=== PATIENT | male | born 1950 | race Caucasian/White ===

== ENCOUNTER 2022-08-10 11:47 | Emergency (ER) | payer MEDICARE, SELFPAY ==
--- NOTE | ~2022-08-10 | XR_ITS ---
EXAMINATION: XR chest 1V portable INDICATION: Cough TECHNIQUE: Portable AP chest at 1214 hours COMPARISON: None available FINDINGS: There is elevation of the left hemidiaphragm. Calcified pulmonary nodules are consistent wi th old granulomatous disease. There are airspace opacities of the left lung base. No pleural effusion or pneumothorax. IMPRESSION: 1. Left basilar airspace opacity, consistent with atelectasis versus pneumonia. 2. Elevation of the left hemidiaphragm of unclear etiology. Reviewed, dictated and finalized at location A.
[2022-08-10 11:54] VITALS: BP 137/77; PULSE 80; RESP 20; TEMP 36.9; O2SAT 92
--- NOTE | 2022-08-10 11:56 | ECG_ITS ---
Measurements Intervals [place] Rate: 81 P: 197 NC: 136 QRS: 190 QRSD: 110 T: 147 QT: 350 QTc: 407 Interpretive Statements SINUS RHYTHM LIMB LEAD REVERSAL INCOMPLETE RIGHT BUNDLE BRANCH BLOCK BASELINE ARTIFACT- I, II, III, AVR, AVL, AVF BORDERLINE ECG NO PREVIOUS ECG AVAILABLE FOR COMPARISON Electronically Signed On 08-10-2022 16:29:40 CDT by Edgar Amador D.O.
[2022-08-10 12:02] VITALS: PULSE 83
--- NOTE | 2022-08-10 12:10 | ED.SOB ---
HPI - SOB/Dyspnea General Chief Complaint: Shortness of Breath/Dyspnea Stated Complaint: shortness of breath Time Seen by Provider: 08/10/22 11:58 History of Present Illness HPI Narrative: This is a 72-year-old male with reported history of COPD, presenting emergency department complaining of cough and shortness of breath for the past 5 days. He states his cough is productive of mucus without blood. He denies pain and has chronic lower extremity swelling that is not worse than usual. Related Data Allergies Allergy/AdvReac Type Severity Reaction Status Date / Time No Known Allergies Allergy Verified 08/10/22 11:49 Review of Systems Review of Systems: CONSTITUTIONAL: Denies fever, chills, or sweats. EYES: Denies visual changes, redness, or discharge. ENT: Rhinorrhea, congestion denies sore throat, or otalgia. CARDIOVASCULAR: Denies chest pain, palpitations, or edema. RESPIRATORY: Cough and dyspnea GASTROINTESTINAL: Denies abdominal pain, nausea, vomiting, or diarrhea. GENITOURINARY: Denies dysuria or hematuria. SKIN: Denies rash or itching. MUSCULOSKELETAL: Denies back pain, joint pain, or myalgia. NEUROLOGIC: Denies headache, numbness, dizziness, or weakness. PSYCHIATRIC: Denies anxiety or depression. Exam Narrative: GENERAL: Well-developed, well-nourished, and in no acute distress. HEAD: Normocephalic, atraumatic. EYES: PERRLA and EOMI. ENT: Nares clear, no rhinorrhea or epistaxis. Mucous membranes moist. Oropharynx without tonsillar hypertrophy exudate or other lesions. NECK: Supple. No adenopathy or masses. No carotid bruits or JVD CHEST: Good aeration with expiratory wheeze noted throughout all posterior lung rinaldi. No respiratory distress. No rales or rhonchi HEART: Regular rate and rhythm. No murmur heard. Normal peripheral pulses. ABDOMEN: Soft, nontender, nondistended, normal active bowel sounds. EXTREMITIES: Normal range of motion. Trace bilateral lower extremity edema SKIN: Warm, dry, no rash. NEURO: No focal deficits. Alert and oriented x3. PSYCH: Normal mood and affect. Course Course Emergency Course: 12:10 - Patient seen ambulating in the emergency department. On initial evaluation, his O2 sats briefly dipped to the high 80s then recovered to the low 90s on room air. 14:00 - On reevaluation, the patient states his breathing is significantly improved. CBC demonstrates mildly decreased hemoglobin of 13.4 but is otherwise unremarkable. Chemistries unremarkable. Chest x-ray demonstrates pneumonia. EKG not concerning for ischemia. After discussing repeat nebs with recommendation for admission given pneumonia and hypoxia, the patient politely but adamantly refuses. Will treat with albuterol inhaler and discharged with antibiotics for pneumonia. Discussed return and emergency precautions including signs/symptoms of respiratory distress and ACS. The patient voiced understanding and is comfortable with the plan. All questions answered to his satisfaction. Vital Signs Vital signs: Vital Signs Temperature 98.5 F 08/10/22 11:54 Pulse Rate 80 08/10/22 11:54 Respiratory Rate 20 08/10/22 11:54 Blood Pressure 137/77 08/10/22 11:54 Pulse Oximetry 92 08/10/22 11:54 Temperature 98.5 F 08/10/22 11:54 Pulse Rate 85 08/10/22 15:12 Respiratory Rate 23 H 08/10/22 15:12 Blood Pressure 119/80 08/10/22 15:12 Pulse Oximetry 93 08/10/22 15:12 MDM - SOB/Dyspnea MDM Narrative Medical decision making narrative: Plan: Labs, imaging, nebs, EKG, troponin, steroids, reassess Differential Diagnosis Differential diagnosis: Likely acute exacerbation of chronic obstructive airways disease, congestive heart failure, community acquired pneumonia and other (ACS, COVID, influenza, metabolic abnormality, other) Lab Data 08/10/22 12:11 08/10/22 12:11 Labs: Lab Results 08/10/22 08/10/22 08/10/22 Range/Units 12:02 12:11 12:11 WBC 6.4 (4.5-10.0) K/mm3 RBC 4.0
[2022-08-10 12:17] LABS: Basophils Percent Auto 0.3 % (0.2-1.2); Eosinophils Absolute Auto 0.5 K/mm3 (0-0.3); Hematocrit 38.8 % (42.0-52.0); Hemoglobin 13.4 g/dL (14.0-18.0); Immature Granulocyte Absolute 0.03 K/mm3 (0.00-0.031); Immature Granulocyte Percent A 0.5 % (0-0.5); Lymphocytes Absolute Auto 1.95 K/mm3 (0.9-3.2); Lymphocytes Percent Auto 30.4 % (18.3-44.2); Mean Corpuscular HGB Conc 34.5 g/dl (32-36); Mean Corpuscular Volume 95.6 fl (80-100); Mean Platelet Volume 9.4 fl (7.4-10.4); Monocytes Absolute Auto 0.9 K/mm3 (0.1-0.6); Monocytes Percent Auto 13.2 % (2.6-8.5); Neutrophils Absolute Auto 3.1 K/mm3 (1.3-6.7); Neutrophils Percent Auto 48.6 % (45.5-73.1); Platelet Count Result 211 k/mm3 (150-375); Red Blood Count 4.06 M/mm3 (4.6-6.20); Red Cell Distribution Width 11.6 % (11.5-14.5); White Blood Count 6.4 K/mm3 (4.5-10.0)
[2022-08-10] MEDS: ALBUTEROL SULFATE NEB 2.5 MG/3 ML INH 10 MG INHALATION (12:24)
[2022-08-10 12:25] VITALS: PULSE 76; RESP 17
[2022-08-10] MEDS: IPRATROPIUM BR 0.02% INH SOLN 0.5 MG/2.5 ML VIAL 1.5 MG INHALATION (12:25)
[2022-08-10 12:28] LABS: Alanine Aminotransferase 43 U/L (6-50); Albumin Level 4.2 g/dL (3.5-5.1); Alkaline Phosphatase 96 U/L (38-126); Anion Gap 5 mmol/L (8-16); Aspartate Amino Transferase 52 U/L (17-59); Bilirubin,Total 0.6 mg/dL (0.2-1.3); Blood Urea Nitrogen 19 mg/dL (9-20); Calcium 8.7 mg/dL (8.4-10.2); Carbon Dioxide 30 mmol/L (22-30); Chloride 98 mmol/L (98-107); Estimated CRCL calculation 95 ml/min; Estimated Glomerular Filt Rate > 60; Glucose 116 mg/dL (65-110); Magnesium 2.1 mg/dL (1.6-2.3); Potassium 4.5 mmol/L (3.4-5.0); Sodium 133 mmol/L (137-145)
[2022-08-10 12:31] LABS: INR 1.1; Prothrombin Time 13.3 Seconds (11.1-14.7)
[2022-08-10 12:32] LABS: Partial Thromboplastin Time 30.2 SECONDS (22.3-36.8)
[2022-08-10 12:39] LABS: NT Pro B Type Natriuretic Pept 32 pg/mL (19.9-100); Troponin I < 0.012 ng/mL (0.000-0.034)
[2022-08-10 12:54] LABS: Influenza A QL RT-PCR Negative (Negative); Influenza B QL RT-PCR Negative (Negative); SARS-CoV-2 RNA PCR Negative
[2022-08-10] MEDS: AZITHROMYCIN 250 MG TABLET 500 MG PO (13:11)
[2022-08-10] MEDS: predniSONE 20 MG TABLET 60 MG PO (13:11)
[2022-08-10 13:19] VITALS: BP 141/82; PULSE 79; RESP 20; O2SAT 97
[2022-08-10 14:50] VITALS: PULSE 82; RESP 19
[2022-08-10] MEDS: ALBUTEROL SULFATE (*SP) AEROSOL 1 PUFF 4 PUFF INHALATION (14:51)
[2022-08-10 15:12] VITALS: BP 119/80; PULSE 85; RESP 23; O2SAT 93
== END 2022-08-10 15:14 | disposition home or self-care (01) ==
PROVIDERS: Emergency Medicine; Emergency Provider Preventive Medicine Aerospace Medicine; PCP Hospitalist
DX: J44.1 Chronic obstructive pulmonary disease with (acute) exacerbation (principal); J18.9 Pneumonia, unspecified organism; Z20.822 Contact with and (suspected) exposure to COVID-19
CPT/HCPCS: 36415; 71045; 80053; 83735; 83880; 84484; 85025; 85610; 85730; 87040; 87502; 93005; 94640; 94664; 96365; 99284; A9270; J0696; J7512; U0003; U0005

== ENCOUNTER 2025-05-07 11:08 | Observation (INO) | payer MEDICARE, SELFPAY ==
[2025-05-07] VITALS (14 sets, daily range): BP systolic 118–159; BP diastolic 59–88; PULSE 63–116; RESP 16–22; TEMP 36.3–37.3; O2SAT 92–100; BMI 39.3
--- NOTE | ~2025-05-07 | XR_ITS ---
Examination: XR chest 1V portable Clinical History: SOB Comparison: 08/10/2022 Technique: Portable AP Findings: Cardiomegaly. Multiple calcified granulomata. Elevated left hemidiaphragm, associated basilar atelectasis. No acute bony abnormality. IMPRESSION: 1. No acute cardiopulmonary findings given portable technique. Reviewed, dictated and finalized at location R. ATCHER CLERK
--- OUTSIDE RECORDS SUMMARY | 2025-05-07 11:10 | XMS_ITS | Encounter Summary ---
Author Organization [facility] Address [address] [place] [address] Care Team Providers Care Coverstitch Machine Operator Name Role Phone Unavailable Primary Care Provider Unavailabl e Encounter Details Date Type Department Care Team (Late st Contact Info) Description 08/02/2024 Lab Requisition [facility] - DermPath Lab [address] [facility] [place] [phone] [place] [id number] [facility] [address] [place] [address] Social History Tobacco Use Types Packs/Day Years Used Date Smoking Tobacco: Former Cigarettes 0 Q uit: 05/29/2012 Smokeless Tobacco: Never Alcohol Use Standard Drinks/Week Comments Yes 14 (1 standard drink = 0.6 oz pu re alcohol) nightly Sex and Gender Information Value Date Recorded Sex Assigned at Not on file Legal Sex Male 2:58 PM CDT Gender Identity Not on file Sexual Orientation Not on file documented as of this encounter Plan of Treatment Not on file documented as of this encounter Procedures Procedure Name Priority Date/Time Associated Diagnosis Comments DERMATOPATHOLOGY Routine 07/30/2024 3:33 AM CDT documented in this encounter Results * DERMATOPATHOLOGY (07/30/2024 3:33 AM CDT) Case Report Dermatopathology Report Case: [id number] Authorizing Provider: Vernon Serrano MD Collected: 07/30/2024 03:33 AM Ordering Location: [facility] - Received: 08/02/2024 10:16 AM DermPath Lab Pathologist: Stephany Granados MD Specimens: A) - Skin, right superior lateral neck B) - Skin, right tragus 4:04 PM CDT DERMATOPATHOLOGY LABORATORY Final Diagnosis Specimen A. 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 The specimen consists of a shave biopsy measuring 39c18k0 mm. Jar 0. Specimen B: Received is one formalin filled container labeled with the patient's name and designated right tragus. The specimen consists of a punch biopsy measuring 4x4x4 mm. Jar 0. 4:04 PM CDT DERMATOPATHOLOGY LABORATORY Microscopic Description Specimen A. SKIN, right superior lateral neck: Sections show nests of cells with pale cytoplasm and thin strands of relatively normal keratinocytes intervening. There is overlying parakeratosis. The hematoxylin and eosin stain is reviewed; immunohistochemical stains are performed to further assess the histologic features. Lesional cells are highlighted by p63 and TAMERA. Lesional cells show patchy positivity with CK7. Lesional cells do not show significant staining with BerEp4 immunostain. COMMENT: The overall histologic features are favored to represent squamous cell carcinoma in situ with clear cell features; however, sebaceous carcinoma cannot be entirely excluded. Specimen B. SKIN, right tragus: The epidermis shows parakeratosis, full thickness disorderly maturation of keratinocytes, mitoses at different levels, and dyskeratotic cells. 4:04 PM CDT DERMATOPATHOLOGY LABORATORY Disclaimer An external and internal positive and negative controls are appropriate for the histochemical, immunohistochemical and immunofluorescence stain(s) in this case (if any), except where stated explicitly. The performance characteristics of the stain(s) cited in this report were developed and its performance characteristic determined by the Dermatopathology Laboratory at [facility], directed by Dr. Nigel Allen. These tests need not be, and therefore are not, approved by the [place] Food and Drug Administration. The tests are used for clinical purposes. Billing Codes Specimen Charges Stain Charges 19298 35300 1 1 43144 85000 77469 82675 1 1 1 1 5 4:04 PM CDT DERMATOPATHOLOGY LABORATORY Embedded Images 5 4:04 PM CDT DERMATOPATHOLOGY LABORATORY Pathology/Cytology TISSUE SPECIMEN FROM SKIN / Unknown 07/30/2024 3:33 AM CDT 08/02/2024 10:16 AM CDT Miscellaneous samples (specimen) TISSUE SPECIMEN FROM SKIN / Unknown 07/30/2024 3:33 AM CDT 08/02/2024 10:16 AM CDT Vernon Serrano MD LAB - PATHOLOGY/CYTOLOGY ANTONIETA ROOT Final Result DERMATOPATHOLOGY LABORATORY [facility] - Department of Dermatology [facility] [address] [place] [address], [address] [phone] documented in this encounter Visit Diagnoses Not on filedocumented in this encounter
--- OUTSIDE RECORDS SUMMARY | 2025-05-07 11:10 | XMS_ITS | Encounter Summary ---
Author Organization [facility] Address [address] [place] [address] Care Team Providers Care Coach Cleaner Name Role Phone Unavailable Primary Care Provider Unavailabl e Encounter Details Date Type Department Care Team (Late st Contact Info) Description 09/10/2024 Lab Requisition [facility] - DermPath Lab [address] [facility] [place] [phone] [place] [address] [facility] [address] [place] [phone] Social History Tobacco Use Types Packs/Day Years [...] Priority Date/Time Associated Diagnosis Comments DERMATOPATHOLOGY Routine 09/08/2024 12:0 0 AM CDT documented in this encounter Results * DERMATOPATHOLOGY (09/08/2024 12:00 AM CDT) Case Report Dermatopathology Report Case: [id number] Authorizing Provider: Vernon Serrano MD Collected: 09/08/2024 12:00 AM Ordering Location: [facility] - Received: 09/10/2024 10:37 AM DermPath Lab Pathologist: Linh Hoffman MD Specimen: Skin, right central lateral neck 4:23 PM CDT DERMATOPATHOLOGY LABORATORY Final Diagnosis Specimen A. 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 4:23 PM CDT DERMATOPATHOLOGY LABORATORY Gross Description Specimen A: Received is one formalin filled container labeled with the patient's name and designated right central lateral neck.The specimen consists of an ellipse measuring 31f36k3 mm and is oriented with the notch at the 9 o'clock position labeled on the requisition as notch. The 12 to 6 o'clock margin is inked green. The 6 o'clock to 12 o'clock margin is inked red. The 12 o'clock tip is submitted in cassette 1. The 6 o'clock tip is submitted in cassette 2. The remainder of the ellipse is serially sectioned and submitted in cassettes 3-7. Jar 0. 4:23 PM CDT DERMATOPATHOLOGY LABORATORY Microscopic Description Specimen A. SKIN, right central lateral neck: The epidermis shows parakeratosis, full thickness disorderly maturation of keratinocytes, mitoses at different levels, and dyskeratotic cells. This lesion is not present at the margin of the specimen. There are fibroblasts and collagen bundles oriented parallel to the skin surface with elongated blood vessels, some of which are oriented perpendicular to the skin surface. 4:23 PM CDT DERMATOPATHOLOGY LABORATORY Disclaimer An external and internal positive and negative controls are appropriate for the histochemical, immunohistochemical and immunofluorescence stain(s) in this case (if any), except where stated explicitly. The performance characteristics of the stain(s) cited in this report were developed and its performance characteristic determined by the Dermatopathology Laboratory at [facility], directed by Dr. Nigel Allen. These tests need not be, and therefore are not, approved by the [place] Food and Drug Administration. The tests are used for clinical purposes. Billing Codes Specimen Charges Stain Charges 10074 1 5 4:23 PM CDT DERMATOPATHOLOGY LABORATORY Embedded Images 5 4:23 PM CDT DERMATOPATHOLOGY LABORATORY Pathology/Cytolog y TISSUE SPECIMEN FROM SKIN / Unknown 09/08/2024 09/10/2024 10:37 AM CDT Vernon Serrano MD LAB - PATHOLOGY/CYTOLOGY ANTONIETA ROOT Final Result DERMATOPATHOLOGY LABORATORY [facility] - Department of Dermatology [facility] [address] [place] [address], [address] [phone] documented in this encounter Visit Diagnoses Not on filedocumented in this encounter
--- OUTSIDE RECORDS SUMMARY | 2025-05-07 11:10 | XMS_ITS | Clinical Summary ---
Author Organization [facility] Address [address] [facility] [place] [address] Care Team Providers Care Nut Threader Name Role Phone Unavailable Primary Care Provider Unavailabl e Source Comments [facility],non-owned Affiliates and Associated Physician Practices is amultiple site organization consisting of ambulatory clinics and hospital sitesin [place], [place], [place] and [place]. This disclosure is being madepursuant to the Care Everywhere program and may not contain all information available regarding this patient. Last updated 18.[facility] Allergies No known active allergies Medications * Be aware that medications may not be up to date on this document. Alwaysverify current medications with the patient. LORazepam (ATIVAN) 1 MG tablet Take 1 tablet by mouth once as needed for Anxiety (before the procedur. do not drive for 24 hours.) 1 tablet 8 Active gabapentin (NEURONTIN) 600 MG tablet Take 1 tablet by mouth 3 times daily 90 tablet 11 8 Active Additional Information Patient taking differently:600 mg Oral4 TIMES DAILY, Reported on 05/29/2018 traMADol (ULTRAM) 50 MG tablet Take 50 mg by mouth every 6 hours as needed for Pain Active fenofibrate (LOFIBRA) 160 MG tablet Take 160 mg by mouth once daily Take with largest meal of the day. 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 Cauda equina syndrome 04/13/2018 Prediabetes 04/13/2018 Immunizations Immunization Administration Dates Next Due INFLUENZA VACCINE 03/22/2018 Social History Tobacco Use Types Packs/Day Years [...] on file Sexual Orientation Not on file Last Filed Vital Signs Vital Sign Reading Time Taken Comments Blood Pressure 126/80 05/29/2018 2:15 PM LACING STRING CUTTER Pulse 68 05/29/2018 2:15 PM LACING STRING CUTTER Temperature 36.5 C (97.7 F) 05/29/2018 2:00 PM LACING STRING CUTTER Respiratory Rate 16 05/29/2018 2:15 PM LACING STRING CUTTER Oxygen Saturation 92% 05/29/2018 2:15 PM LACING STRING CUTTER Inhaled Oxygen Concentration - - Weight 114.8 kg (253 lb) 05/29/2018 8:56 AM LACING STRING CUTTER Height 175.3 cm (5' 9) 05/29/2018 8:56 AM LACING STRING CUTTER Body Mass Index 37.36 05/29/2018 8:56 AM LACING STRING CUTTER Plan of Treatment Health Maintenance Due Date Last Done Comments COLOGUARD (AGES 45-75) - COL ON CA SCREENING 1952 COLON MONITORING 1952 COLONOSCOPY - COLON CA SCREENING 1952 CT COLONOGRAPHY - COLON CA SCREENING 1952 Colorectal Cancer Screening 1952 FIT - COLON CA SCREENING 1952 FLEX SIG - COLON CA SCREENING 1952 LIPID TESTING 1952 HEPATITIS C SCREENING 03/15/1970 DTAP/TDAP/TD VACCINES (1 - Tdap) 1971 PNEUMOCOCCAL VACCINE 50+ (1 of 1 - PCV) 2002 ZOSTER VACCINE (1 of 2) 2002 AAA SCREENING 2017 SCREENING FOR DIABETES 04/13/2018 DEPRESSION SCREENING 05/19/2024 MEDICARE AWV CALENDAR YEAR 2024 COVID-19 VACCINE (1 - 2024-2 6 season) 2025 INFLUENZA VACCINE (#1) 2025 03/22/2018 Respiratory Syncytial Virus (RSV) Vaccine Pt: or over 60 yrs (1 - 1-dose 75+ series) 2027 HEPATITIS B VACCINE Aged Out No longe r eligible based on patient's age to complete this topic HIB VACCINE Aged Out No longer eligi ble based on patient's age to complete this topic HPV VACCINE Aged Out No longer eligi ble based on patient's age to complete this topic MENINGOCOCCAL (Group B) VACC INE SHARED DECISION-MAKING Aged Out No longer eligibl e based on patient's age to complete this topic MENINGOCOCCAL GROUPS A/C/Y/W VACCINE Aged Out No longer eligible b ased on patient's age to complete this topic Insurance MEDICARE MEDICARE [employer] MANAGED MEDICARE ADV
--- NOTE | 2025-05-07 12:42 | ECG_ITS ---
Test Date: 2025-05-07 12:45:39 Measurements Intervals [place] Rate: 114 P: 36 RI: 174 QRS: -76 QRSD: 138 T: 34 QT: 336 QTc: 463 Interpretive Statements SINUS TACHYCARDIA RIGHT BUNDLE BRANCH BLOCK LEFT ANTERIOR FASCICULAR BLOCK BASELINE ARTIFACT- I, II, III, AVR, AVL, AVF, V1-V3 ABNORMAL ECG No previous ECG available for comparison Electronically Signed On 05-07-2025 17:33:00 [employer] by Edgar Amador D.O.
[2025-05-07 12:54] LABS: Hematocrit 40.3 % (42.0-52.0); Hemoglobin 14.1 g/dL (14.0-18.0); Immature Granulocyte Percent A 0.4 % (0-0.5); Lymphocytes Absolute Auto 1.06 K/mm3 (0.9-3.2); Mean Corpuscular HGB Conc 35.0 g/dl (32-36); Mean Corpuscular Hemoglobin 33.0 pg (26-34); Mean Corpuscular Volume 94.4 fl (80-100); Nucleated Red Blood Cells Absolute Auto 0.000 K/mm3 (0.0-0.012); Nucleated Red Blood Cells Perc 0.0 % (0.0-0.2); Platelet Count Result 201 k/mm3 (150-375); Red Blood Count 4.27 M/mm3 (4.6-6.20); White Blood Count 12.7 K/mm3 (4.5-10.0)
[2025-05-07 13:13] LABS: Alanine Aminotransferase 31 U/L (6-50); Albumin Level 4.2 g/dL (3.5-5.1); Alkaline Phosphatase 74 U/L (38-126); Anion Gap 8 mmol/L (4-12); Aspartate Amino Transferase 37 U/L (17-59); Bilirubin,Total 1.2 mg/dL (0.2-1.3); Blood Urea Nitrogen 20 mg/dL (9-20); Calcium 9.3 mg/dL (8.4-10.2); Carbon Dioxide 24 mmol/L (22-30); Chloride 99 mmol/L (98-107); Estimated CRCL calculation 87 ml/min; Estimated Glomerular Filt Rate > 60; Glucose 112 mg/dL (65-110); Potassium 4.4 mmol/L (3.4-5.0); Sodium 131 mmol/L (137-145); Total Protein 7.5 g/dL (6.3-8.2)
--- NOTE | 2025-05-07 13:24 | ED.GENADULT ---
HPI - General Adult General Chief complaint: Shortness of Breath/Dyspnea Stated complaint: SOB Time Seen by Provider: 05/07/25 13:00 History of Present Illness HPI narrative: Patient is a 75-year-old male who presents ER with shortness of breath and confusion. Developed over last 24 hours. He is warm to touch. He is oriented to self. He believes he is in [place]. He is unsure what the date is. This is atypical according to family who is present. No reports of sick contacts. No evidence of trauma. Patient does report he has been having some popping in left ear. Related Data Allergies Allergy/AdvReac Type Severity Reaction Status Date / Time No Known Allergies Allergy Verified 05/07/25 11:17 Review of Systems Review of Systems: ROS unobtainable: Yes unobtainable due to mental status PMFSH Past Medical History Medical History (Updated 05/07/25 @ 17:11 by Ever Brothers MD) YAYA on CPAP COPD (chronic obstructive pulmonary disease) Alcohol abuse Hyperlipidemia Hypertension Exam Narrative: GENERAL: Ill-appearing, well-nourished, and in no acute distress. HEAD: Normocephalic, atraumatic. EYES: PERRLA and EOMI. ENT: Mucous membranes moist. Bulging left TM with air bubbles representing increased pressure. Mild erythema. No overt otitis media. Right-side normal. NECK: Supple. CHEST: Scattered rales/wheezing. No respiratory distress. HEART: Regular rate and rhythm. Normal peripheral pulses. ABDOMEN: Soft, nontender, nondistended. EXTREMITIES: Normal range of motion. No edema. SKIN: Warm, dry, no rash. NEURO: Alert and oriented x1-2 Course Course Emergency Course: Patient resting comfortably. Still some mild mild confusion but improving with O2. Will give steroids and nebulizer treatments. Admit for observation. No pneumonia. Viral panel negative. Vital Signs Vital signs: Vital Signs Temperature 99.1 F 05/07/25 11:13 Pulse Rate 82 05/07/25 11:13 Respiratory Rate 22 H 05/07/25 11:13 Blood Pressure 159/82 H 05/07/25 11:13 Pulse Oximetry 92 05/07/25 11:13 Oxygen Delivery Room Air 05/07/25 11:13 Temperature 99.1 F 05/07/25 11:13 Pulse Rate 100 05/07/25 16:53 Respiratory Rate 19 05/07/25 16:53 Blood Pressure 133/67 05/07/25 16:53 Pulse Oximetry 94 05/07/25 16:53 Oxygen Delivery Nasal Cannula 05/07/25 15:00 Oxygen Flow Rate 2 05/07/25 15:00 [facility] Differential Diagnosis Differential Diagnosis: Pneumonia, COPD exacerbation, bronchitis, metabolic encephalopathy, flu, COVID Lab Data [facility] Lab Attestation statement: I personally reviewed the patient's lab results. 05/07/25 12:48 05/07/25 12:48 Labs: Lab Results 05/07/25 05/07/25 05/07/25 Range/Units 12:48 13:48 16:14 WBC 12.7 H (4.5-10.0) K/mm3 RBC 4.27 L (4.6-6.20) M/mm3 Hgb 14.1 (14.0-18.0) g/dL Hct 40.3 L (42.0-52.0) % MCV 94.4 (80-100) fl MCH 33.0 (26-34) pg MCHC 35.0 (32-36) g/dl RDW 12.1 (11.5-14.5) % Plt Count 201 (150-375) k/mm3 MPV 9.0 (7.4-10.4) fl Immature Gran % (Auto) 0.4 (0-0.5) % Neut % (Auto) 84.2 H (45.5-73.1) % Lymph % (Auto) 8.4 L (18.3-44.2) % Mclennan % (Auto) 6.6 (2.6-8.5) % Eos % (Auto) 0.2 (0-4.4) % Baso % (Auto) 0.2 (0.2-1.2) % Lymph # (Auto) 1.06 (0.9-3.2) K/mm3 Mclennan # (Auto) 0.8 H (0.1-0.6) K/mm3 Eos # (Auto) 0.0 (0-0.3) K/mm3 Baso # (Auto) 0.0 (0.0-0.1) K/mm3 Abs Immat Gran (auto) 0.05 H (0.00-0.031) K/mm3 Absolute Neuts (auto) 10.7 H (1.3-6.7) K/mm3 Absolute Nucleated RBC 0.000 (0.0-0.012) K/mm3 Nucleated RBC % 0.0 (0.0-0.2) % Sodium 131 L (137-145) mmol/L Potassium 4.4 (3.4-5.0) mmol/L Chloride 99 (98-107) mmol/L Carbon Dioxide 24 (22-30) mmol/L Anion Gap 8 (4-12) mmol/L BUN 20 (9-20) mg/dL Creatinine 0.84 (0.7-1.3) mg/dL Estim Creat Clear Calc 87 ml/min Estimated GFR > 60 (59 - ) Glucose 112 H (65-110) mg/dL Calcium 9.3 (8.4-10.2) mg/dL Total Bilirubin 1.2 (0.2-1.3) mg/dL AST 37 (17-59) U/L ALT 31 (6-50) U/L Alkaline Phosphatase 74 (38-126) U/L Total Protein 7.5 (6.3-8.2) g/dL Albumin 4.2 (3.5-5.1) g/dL Urine Color Yellow (Yellow) Urine Appearance Clear (Clear) Urine pH 6.5 (5.0-9.0) Ur Specific [place] 1.014 (1.001-1.035) Urine Protein Negative (Negative) mg/dL Urine Glucose (UA) Negative (Negative) mg/dL Urine Ketones Negative (Negative) mg/dL Ur Blood (Man) Negative (Negative) Urine Nitrate Negative (Negative) Urine Bilirubin Negative (Negative) Urine Urobilinogen 0.2 (<2.0) mg/dL Leukocyte Esterase Rfl Negative (Negative) GRACIELA/UL Influenza A (RT-PCR) Negative (Negative) Influenza B (RT-PCR) Negative (Negative) RSV (RT-PCR) Negative (Negative) SARS-CoV-2 RNA (RT-PCR) Negative (Negative) Imaging Data Radiologist's impression: ITS Impressions Chest X-Ray 05/07/25 13:30 IMPRESSION: 1. No acute cardiopulmonary findings given portable technique. ECG Data EKG #1: ECG completion date: 05/07/25 ECG completion time: 12:45 tachycardia (114), sinus rhythm, non-specific ST changes, widened QRS and RBBB Discharge Plan Discharge Clinical Impression: Hypoxia, Metabolic encephalopathy Patient Disposition: Still a Patient Condition: Stable
[2025-05-07 14:29] LABS: Influenza A QL RT-PCR Negative (Negative); Influenza B QL RT-PCR Negative (Negative); RSV RNA, RT-PCR Negative (Negative); SARS-CoV-2 RNA PCR Negative (Negative)
[2025-05-07 16:19] LABS: Add Urine Microscopic? NO; Appearance Urine Clear (Clear); Glucose Urine UA Negative (Negative); Leukocyte Esterase Ur Negative LEU/UL (Negative); Nitrate Urine Negative (Negative); Specific Grav Ur 1.014 (1.001-1.035)
[2025-05-07] MEDS: IPRATROPIUM 0.5 MG/ALBUTEROL SULFATE 2.5 MG (BASE) AMPUL.NEB 3 ML INHALATION ×2 (16:27→20:42)
--- NOTE | 2025-05-07 16:47 | PC.NURSE ---
Patients dinner tray ordered at this time.
[2025-05-07] MEDS: SODIUM CHLORIDE 0.9% IV 1,000 ML 125 ML IV CONT (16:55)
--- NOTE | 2025-05-07 17:03 | WPCEDHO ---
ED Hand Off Checklist All vitals saved:yes IV Site documented:yes All med administrations documented:yes Triage Note Triage Note Pt to ed via [facility] 05/07/25 11:13 cough, SOB. Per EMS his O2 on RA was 88%, was give 4L/O32 per NC and O23 sat went up to 94%. Pt has hx of COPD no oxygen, wears c -pap at night, alert and oriented x3, from home Allergies No Known Allergies Allergy (Verified 05/07/25 11:17) Active Medications including assessments/comments Sodium Chloride (Normal Saline Iv) 1,000 mls @ 125 mls/hr IV CONT .Q8H APURVA Last Admin: 05/07/25 16:55 Dose: 125 mls/hr Documented By: [facility] Infusion/Titration Document 05/07/25 16:55 [facility] (Rec: 05/07/25 16:56 [facility] [id number]) Intake IV Site Peripheral Access Left Antecubital Container Volume 1,000 Waste Amount 0 Dosing Infusion Rate 125 Cumulative Dose Not Applicable Increase/Decrease Started Elapsed Time Elapsed Time ( 0m minutes) Administered/Completed Medications Discontinued Medications Albuterol/Ipratropium (Ipratropium 0.5 Mg/Albuterol Sulfate 2.5 Mg (Base) Ampul.Neb 3 Ml) 3 ml INHALATION ONCE STA Stop: 05/07/25 16:13 Last Admin: 05/07/25 16:27 Dose: 3 ml Documented By: DDS Methylprednisolone Sodium Succinate (Methylprednisolone Sod Succ 125 Mg Vial) 125 mg IV PUSH ONCE STA Stop: 05/07/25 16:13 Last Admin: 05/07/25 16:43 Dose: 125 mg Documented By: [facility] Notes 05/07/25 16:47 Nurse Note by Anabel Ha Patients dinner tray ordered at this time. Initialized on 05/07/25 16:47 - END OF NOTE Interventions/Assessments IV / Saline Lock, Insert Start: 05/07/25 12:42 Freq: STAT Status: Active Protocol: Document 05/07/25 12:42 [facility] (Rec: 05/07/25 12:43 [facility] [id number]) IV Assessment Peripheral Access Left Antecubital IV Catheter Access Initiated Before Arrival IV Insertion Date 05/07/25 Catheter Gauge 18 IV Insertion 1 Attempts Ultrasound Used for No Placement IV Site Assessment WNL IV Care and WNL Maintenance PA: Cardiovascular Assessment Start: 05/07/25 11:13 Freq: Status: Active Protocol: Document 05/07/25 12:53 [facility] (Rec: 05/07/25 12:55 [facility] [id number]) Cardiovascular Assessment Cardiovascular None Symptoms Skin Description Normal Color Heart Sounds Normal Jugular Vein None Distention PA: Respiratory Assessment Start: 05/07/25 11:13 Freq: Status: Active Protocol: Document 05/07/25 12:53 [facility] (Rec: 05/07/25 12:55 [facility] [id number]) Respiratory Assessment Symptoms Shortness of Breath at Rest,Shortness of Breath With Exertion Effort Labored Pattern Regular Depth Deep Chest Expansion Symmetrical Adult Capillary Normal/Less than 2 Seconds Refill Bilateral Lower Lobe(s) Phase Inspiratory & Expiratory Lung Sounds Diminished Cough Frequency Intermittent Sputum Amount None Last Vital Signs Temperature 99.1 F 05/07/25 11:13 Pulse Rate 100 05/07/25 16:53 Respiratory Rate 19 05/07/25 16:53 Pulse Oximetry 94 05/07/25 16:53 Blood Pressure 133/67 05/07/25 16:53 Blood Pressure Mean 89 05/07/25 16:53 Blood Pressure Position Sitting 05/07/25 11:13 Oxygen Delivery Nasal Cannula 05/07/25 15:00 Oxygen Flow Rate 2 05/07/25 15:00 Weight 118.1 kg 05/07/25 11:13 Last Result - Abnormals Only WBC 12.7 K/mm3 (4.5-10.0) H 05/07/25 12:48 RBC 4.27 M/mm3 (4.6-6.20) L 05/07/25 12:48 Hct 40.3 % (42.0-52.0) L 05/07/25 12:48 Neut % (Auto) 84.2 % (45.5-73.1) H 05/07/25 12:48 Lymph % (Auto) 8.4 % (18.3-44.2) L 05/07/25 12:48 [place] # (Auto) 0.8 K/mm3 (0.1-0.6) H 05/07/25 12:48 Abs Immat Gran (auto) 0.05 K/mm3 (0.00-0.031) H 05/07/25 12:48 Absolute Neuts (auto) 10.7 K/mm3 (1.3-6.7) H 05/07/25 12:48 Sodium 131 mmol/L (137-145) L 05/07/25 12:48 Glucose 112 mg/dL (65-110) H 05/07/25 12:48 Most Recent Suicide Severity Rating Suicide Severity Rating NO RISK INDICATED 05/07/25 11:13
[2025-05-07] MEDS: cefTRIAXone 1 GM in SODIUM CHLORIDE 0.9% IV 50 ML 100 ML IVPB (18:14)
[2025-05-07] MEDS: HYDROcodone/acetaminophen (*CRX) 5-325 MG TABLET 1 TAB PO (18:52)
[2025-05-07] MEDS: LACTATED RINGERS 1,000 ML 999 ML IV CONT ×2 (19:02→20:12)
[2025-05-07] MEDS: DOXYCYCLINE IV 100 MG in SODIUM CHLORIDE 0.9% IV 100 ML IVPB (19:03)
[2025-05-07] MEDS: guaiFENesin 12 HR 600 MG TABCR PO (20:13)
--- NOTE | 2025-05-07 21:10 | PM.IMHP2 ---
H&P: HPI History of Present Illness Date/Time: 05/07/25 21:10 Chief Complaint: Cough, Shortness of Breath, Confusion Narrative: 75 y/o M with PMH of COPD, YAYA on CPAP, HTN, HLD, and alcohol abuse presents here with cough, shortness of breath, and hypoxia. The patient presents here from home via EMS on 05/07 for further evaluation of respiratory symptoms and altered mental status. HPI obtained through patient report and chart review. Per EMS upon arrival to the emergency department, the patient's O2 sat was 88% on room air upon their arrival. He was subsequently placed on supplemental O2 at 4L nasal cannula which improved his O2 saturation to 94%. Upon arrival to the ER he was 92% on room air. The patient reports his respiratory symptoms have developed over the last 24 hours. He is normally A&O x4. But is currently orientated to self only and he is reporting in the last few days his concentration has been worse and he has been foggy. Was initially unable to write the place, date, or history. Family at the bedside said this is not typical for him. Respiratory symptoms include a intermittently productive cough, shortness of breath, intermittent rhinorrhea, congestion, nausea without vomiting, chest tightness when he feels like he cant breathe/feels panicked, fatigue, and lightheadedness. He denies fever, chills, diarrhea, or abdominal pain. He additionally is reporting a popping sensation in his left ear due to the intermittent congestion. Initial VS at presentation: 99.1? F, HR 82, R 22, 159/82, and 92% on RA. Now 94% on 4L NC. ED workup showed: WBC 12.7, no anemia, sodium 131, glucose 112, no other significant electrolyte derangements, creatinine 0.84 and GFR >60, UA unremarkable. Viral PCR negative. CXR showed no acute cardiopulmonary findings. EKG showed sinus tachycardia, rate 114, right bundle branch block (present previously). Review of Systems Review of Systems: All systems reviewed & are unremarkable except as noted in HPI and below (Limited, altered) [facility] Past Medical History Medical History (Updated 05/07/25 @ 17:20 by Flakita Martinez, [place]) YAYA on CPAP COPD (chronic obstructive pulmonary disease) Alcohol abuse Hyperlipidemia Hypertension Social History Social History Smoking status: Former smoker Tobacco type: cigarettes Alcohol intake: current Drinks per week: 4 Substance use: current Substance use type: marijuana Lack of Transportation: No Lack of Food: Never True Current Housing: I Have Housing Concerned About Future Housing: No Difficulty Paying Gas/Electric Bills: No Difficulty Paying for Meds: No Currently Unemployed: No Education: High School Diploma/GED Difficulty w/ Childcare or Family Care: No Spiritual care concerns: No Meds Home Medications and Allergies Home Medications ?Medication ?Instructions ?Recorded ?Confirmed ?Type albuterol sulfate 90 mcg/actuation 2 inh inhalation QID PRN shortness 08/10/22 05/07/25 Rx aerosol inhaler of breath or wheezing #8.5 grams amitriptyline 25 mg tablet 50 mg PO HS 05/07/25 05/07/25 History aspirin 81 mg tablet,delayed 81 mg PO DAILY 05/07/25 05/07/25 History release (Adult Low Dose Aspirin) atorvastatin 40 mg tablet 40 mg PO QAM 05/07/25 05/07/25 History carvedilol 6.25 mg tablet 6.25 mg PO BID 05/07/25 05/07/25 History escitalopram oxalate 20 mg tablet 20 mg PO QAM 05/07/25 05/07/25 History furosemide 20 mg tablet 20 mg PO QAM 05/07/25 05/07/25 History lorazepam 0.5 mg tablet 0.5 mg PO TID 05/07/25 05/07/25 History losartan 50 mg tablet 50 mg PO QAM 05/07/25 05/07/25 History mometasone-formoterol HFA 100 2 puff inhalation BID 05/07/25 05/07/25 History mcg-5 mcg/actuation aerosol inhaler (Dulera) Allergies Allergy/AdvReac Type Severity Reaction Status Date / Time No Known Allergies Allergy Verified 05/07/25 17:55 Vital Signs Vital Signs - 24 hr 05/07/25 11:13 05/07/25 12:43 05/07/25 14:51 Temperature 99.1 F Pulse Rate 82 116 H 85 Respiratory Rate 22 H 22 H 22 H Blood Pressure 159/82 H 144/88 H 118/74 Pulse Oximetry 92 92 100 Oxygen Delivery Room Air Oxygen Flow Rate 05/07/25 15:00 05/07/25 16:27 05/07/25 16:32 Temperature Pulse Rate 107 H 106 H Respiratory Rate 21 H 21 H Blood Pressure Pulse Oximetry 94 Oxygen Delivery Nasal Cannula Oxygen Flow Rate 2 05/07/25 16:53 Temperature Pulse Rate 100 Respiratory Rate 19 Blood Pressure 133/67 Pulse Oximetry 94 Oxygen Delivery Oxygen Flow Rate Exam Const: General: comfortable and no acute distress Other: , male, elderly, nontoxic appearance HENMT: Face/Nose/Sinus: Normal nares present Mouth: Yes moist mucous membranes Eyes: General: appearance normal, both eyes and all related structures Sclera: sclerae normal Pupils: Equal, round and reactive pupils present EOM: EOMs intact bilaterally Resp: Effort & Inspection: normal respiratory effort Other: Faint bibasilar crackles. No wheezing. Nasal cannula place and tolerating well. Cardio: Rate: regular rate Rhythm: regular rhythm Other: S1-S2 present without murmur, rub, ectopy GI: Other: Abdomen soft, nondistended, nontender. Normoactive bowel sounds in all quadrants. Skin: General skin exam: normal color and no rashes or lesions noted Wounds: no wounds Neuro: Speech: normal speech Motor exam (neuro): 5/5 motor strength present throughout Sensory Exam: normal sensation Other: A&O x4 Extrem: Other: 2+ pitting edema to the bilateral lower extremities, firm. Chronic per patient. Psych: Mental Status: mental status grossly normal Affect: normal affect Other: Good insight and judgment, pleasant Results Labs Labs: Short CBC 05/07/25 Range/Units 12:48 WBC 12.7 H (4.5-10.0) K/mm3 Hgb 14.1 (14.0-18.0) g/dL Hct 40.3 L (42.0-52.0) % Plt Count 201 (150-375) k/mm3 BMP 05/07/25 12:48 Sodium 131 L Potassium 4.4 Chloride 99 Carbon Dioxide 24 BUN 20 Creatinine 0.84 Glucose 112 H Calcium 9.3 Liver Function 05/07/25 Range/Units 12:48 Total Bilirubin 1.2 (0.2-1.3) mg/dL AST 37 (17-59) U/L ALT 31 (6-50) U/L Alkaline Phosphatase 74 (38-126) U/L Albumin 4.2 (3.5-5.1) g/dL Urine 05/07/25 Range/Units 16:14 Urine Color Yellow (Yellow) Urine Appearance Clear (Clear) Urine pH 6.5 (5.0-9.0) Ur Specific [place] 1.014 (1.001-1.035) Urine Protein Negative (Negative) mg/dL Urine Glucose (UA) Negative (Negative) mg/dL Quality VTE Prophylaxis VTE prophylaxis: pharmacologic ordered Assessment and Plan Assessment and plan (1) Acute hypoxic respiratory failure: Code(s): J96.01 - Acute respiratory failure with hypoxia Status: Acute Assessment and Plan: Patient presented here with cough and shortness of breath. Initially hypoxic for EMS at 88% on room air. Arrived 92% on room air. Now requiring 2 L nasal cannula to maintain O2 sat greater than 92%. Currently hovering in the mid . No previous history of supplemental O2 requirement. Does have history of COPD. Current workup showed mild leukocytosis at 12.7. Viral PCR negative. CXR impression showed no acute cardiopulmonary findings. However personally reviewed, loss concern for a left lower lobe pneumonia compared to his previous CXR from 2022, however there is only a one view available in the patient appears to be slightly more reclined. Suspect viral infection (not COVID flu RSV) as etiology of patient's respiratory symptoms and new confusion. Given leukocytosis, COPD history, confusion at and slight change in the left lower lobe, will start broad-spectrum antibiotics for suspected early pneumonia. - broad-spectrum antibiotics for early pneumonia and encourage IS - supportive care for suspected viral respiratory infection - continue supplemental oxygen to maintain O2 sat greater than 92% - minimally met criteria for SIRS, see below. No definitive infectious source, however suspecting pneumonia (2) Altered mental status: Qualifiers: Altered mental status type: disorientation Qualified Code(s): R41.0 - Disorientation, unspecified Code(s): R41.82 - Altered mental status, unspecified Status: Acute Assessment and Plan: Patient here with new onset confusion that was noted day of admission, 05/07. Patient alert to self only. Per family at the bedside in the ER, deviation from baseline. Workup concerning for viral respiratory infection and possible left lower lobe pneumonia. Likely metabolic encephalopathy as there are no focal deficits on exam. Currently return to baseline and A&O x4. - started on broad-spectrum antibiotics for possible early pneumonia - monitor neurologic status (3) COPD (chronic obstructive pulmonary disease): Qualifiers: COPD type: unspecified COPD Qualified Code(s): J44.9 - Chronic obstructive pulmonary disease, unspecified Code(s): J44.9 - Chronic obstructive pulmonary disease, unspecified Status: Acute Assessment and Plan: Patient has past medical history significant for COPD not on supplemental oxygen. Currently hypoxic and requiring 2L nasal cannula to maintain O2 sat greater than 92% - DuoNebs johanna - Solu-Medrol IV johanna - Mucinex johanna (4) SIRS (systemic inflammatory response syndrome): Code(s): R65.10 - Systemic inflammatory response syndrome (SIRS) of non-infectious origin without acute organ dysfunction Status: Acute Assessment and Plan: Patient met SIRS criteria due to respiratory rate and WBC greater than 12. No definitive infectious source, however CXR concerning for possible early left lower lobe pneumonia. Will tachypnea could be related to COPD exacerbation. - check blood cultures and lactic >> lactic 1.8 - hemodynamically stable per review of ED vital signs - no documented history of CHF, give 2L bolus and assess toleration -> 100 mL/hr. Monitor toleration. (5) Hypertension: Qualifiers: Hypertension type: primary hypertension Qualified Code(s): I10 - Essential (primary) hypertension Code(s): I10 - Essential (primary) hypertension Status: Chronic Assessment and Plan: - chronic, currently 133/67 - continue home medications: Coreg, Lasix, losartan - monitor (6) YAYA on CPAP: Code(s): G47.33 - Obstructive sleep apnea (adult) (pediatric) Status: Chronic Assessment and Plan: - continue home CPAP Plan Diet: Heart healthy GI Prophylaxis: N/a DVT Prophylaxis: Lovenox IV fluids: 2L -> 100 mL/hr Lines/Tubes: pIV Code Status: Full code Prior Studies I have reviewed the following patient records and this information was taken into consideration when formulating the assessment and plan.: previous labs, previous ER visits, previous hospitalizations and previous clinic visits Time Spent with Patient Time with patient: less than 45 minutes Hospitalist MIPS Advance Care Plan I have confirmed that the patient's Advanced Care Plan is present, code status is documented, or surrogate decision maker is listed in patient medical record.: Yes Medication Reconciliation I have utilized all available resources to obtain, update and review the patients current medications (includes all prescriptions, OTC, herbals, cannabis, and nutritional supplements).: Yes
[2025-05-07] MEDS: LORazepam (*CRX) 0.5 MG TABLET PO (22:09)
[2025-05-07] MEDS: AMITRIPTYLINE HCL 25 MG TABLET 50 MG PO (22:09)
--- NOTE | 2025-05-08 05:01 | PCRCNOTE ---
Patient refused 0200 updraft treatment not wanting to be awakened. Patient states he is not having difficulty breathing. Next treatment @ 0800.
[2025-05-08 05:24] LABS: Hematocrit 38.1 % (42.0-52.0); Hemoglobin 12.9 g/dL (14.0-18.0); Immature Granulocyte Percent A 0.5 % (0-0.5); Lymphocytes Absolute Auto 0.94 K/mm3 (0.9-3.2); Mean Corpuscular HGB Conc 33.9 g/dl (32-36); Mean Corpuscular Hemoglobin 32.8 pg (26-34); Mean Corpuscular Volume 96.9 fl (80-100); Nucleated Red Blood Cells Absolute Auto 0.000 K/mm3 (0.0-0.012); Nucleated Red Blood Cells Perc 0.0 % (0.0-0.2); Platelet Count Result 181 k/mm3 (150-375); Red Blood Count 3.93 M/mm3 (4.6-6.20); White Blood Count 10.0 K/mm3 (4.5-10.0)
[2025-05-08 05:32] VITALS: BP 151/73; PULSE 84; RESP 16; TEMP 36.5; O2SAT 94
[2025-05-08 05:52] LABS: Anion Gap 7 mmol/L (4-12); Blood Urea Nitrogen 17 mg/dL (9-20); Calcium 8.9 mg/dL (8.4-10.2); Carbon Dioxide 26 mmol/L (22-30); Chloride 102 mmol/L (98-107); Estimated CRCL calculation 99 ml/min; Estimated Glomerular Filt Rate > 60; Glucose 192 mg/dL (65-110); Potassium 4.1 mmol/L (3.4-5.0); Sodium 135 mmol/L (137-145)
[2025-05-08] MEDS: DOXYCYCLINE IV 100 MG in SODIUM CHLORIDE 0.9% IV 100 ML IVPB (06:18)
[2025-05-08 08:00] VITALS: O2SAT 94
[2025-05-08 08:08] VITALS: PULSE 91
[2025-05-08] MEDS: ASPIRIN 81 MG ENTERIC TABLET PO (08:08)
[2025-05-08] MEDS: ATORVASTATIN 40 MG TABLET PO (08:08)
[2025-05-08] MEDS: FUROSEMIDE 20 MG TABLET PO (08:11)
[2025-05-08] MEDS: ENOXAPARIN 40 MG/0.4 ML SYRINGE SUB-Q (08:11)
[2025-05-08] MEDS: ESCITALOPRAM OXALATE 10 MG TABLET 20 MG PO (08:11)
[2025-05-08] MEDS: guaiFENesin 12 HR 600 MG TABCR PO (08:11)
[2025-05-08] MEDS: LORazepam (*CRX) 0.5 MG TABLET PO ×2 (08:12→12:31)
[2025-05-08] MEDS: LOSARTAN POTASSIUM 50 MG TABLET PO (08:12)
[2025-05-08] MEDS: IPRATROPIUM 0.5 MG/ALBUTEROL SULFATE 2.5 MG (BASE) AMPUL.NEB 3 ML INHALATION (08:31)
[2025-05-08] MEDS: FLUTICASONE/SALMETEROL 115-21 MCG INHALER 1 PUFF 2 PUFF INHALATION (08:32)
[2025-05-08 08:33] VITALS: PULSE 101; RESP 20; O2SAT 94
[2025-05-08 08:36] VITALS: PULSE 104; RESP 20
--- NOTE | 2025-05-08 08:55 | P.DS_ITS ---
DS: Admitting Diagnosis Discharge Date 05/08/2025 Admitting Diagnosis Acute hypoxic respiratory failure DS: Discharge Diagnosis Discharge Diagnosis (1) Acute hypoxic respiratory failure: Code(s): J96.01 - Acute respiratory failure with hypoxia Status: Acute Assessment and Plan: Patient presented here with cough and shortness of breath. Initially hypoxic for EMS at 88% on room air. Arrived 92% on room air. Now requiring 2 L nasal cannula to maintain O2 sat greater than 92%. Currently hovering in the mid 90s. No previous history of supplemental O2 requirement. Does have history of COPD. Current workup showed mild leukocytosis at 12.7. Viral PCR negative. CXR impression showed no acute cardiopulmonary findings. However personally reviewed, loss concern for a left lower lobe pneumonia compared to his previous CXR from 2022, however there is only a one view available in the patient appears to be slightly more reclined. Suspect viral infection (not COVID flu RSV) as etiology of patient's respiratory symptoms and new confusion. Given leukocytosis, COPD history, confusion at and slight change in the left lower lobe, will start broad-spectrum antibiotics for suspected early pneumonia. - broad-spectrum antibiotics for early pneumonia and encourage IS - supportive care for suspected viral respiratory infection - continue supplemental oxygen to maintain O2 sat greater than 92% - minimally met criteria for SIRS, see below. No definitive infectious source, however suspecting pneumonia (2) Altered mental status: Qualifiers: Altered mental status type: disorientation Qualified Code(s): R41.0 - Disorientation, unspecified Code(s): R41.82 - Altered mental status, unspecified Status: Acute Assessment and Plan: Patient here with new onset confusion that was noted day of admission, 05/07. Patient alert to self only. Per family at the bedside in the ER, deviation from baseline. Workup concerning for viral respiratory infection and possible left lower lobe pneumonia. Likely metabolic encephalopathy as there are no focal deficits on exam. Currently return to baseline and A&O x4. - started on broad-spectrum antibiotics for possible early pneumonia - monitor neurologic status (3) COPD (chronic obstructive pulmonary disease): Qualifiers: COPD type: unspecified COPD Qualified Code(s): J44.9 - Chronic obstructive pulmonary disease, unspecified Code(s): J44.9 - Chronic obstructive pulmonary disease, unspecified Status: Acute Assessment and Plan: Patient has past medical history significant for COPD not on supplemental oxygen. Currently hypoxic and requiring 2L nasal cannula to maintain O2 sat greater than 92% - DuoNebs johanna - Solu-Medrol IV johanna - Mucinex johanna (4) SIRS (systemic inflammatory response syndrome): Code(s): R65.10 - Systemic inflammatory response syndrome (SIRS) of non-infectious origin without acute organ dysfunction Status: Acute Assessment and Plan: Patient met SIRS criteria due to respiratory rate and WBC greater than 12. No definitive infectious source, however CXR concerning for possible early left lower lobe pneumonia. Will tachypnea could be related to COPD exacerbation. - check blood cultures and lactic >> lactic 1.8 - hemodynamically stable per review of ED vital signs - no documented history of CHF, give 2L bolus and assess toleration -> 100 mL/hr. Monitor toleration. (5) Hypertension: Qualifiers: Hypertension type: primary hypertension Qualified Code(s): I10 - Essential (primary) hypertension Code(s): I10 - Essential (primary) hypertension Status: Chronic Assessment and Plan: - chronic, currently 133/67 - continue home medications: Coreg, Lasix, losartan - monitor (6) YAYA on CPAP: Code(s): G47.33 - Obstructive sleep apnea (adult) (pediatric) Status: Chronic Assessment and Plan: - continue home CPAP Plan Diet: Heart healthy GI Prophylaxis: N/a DVT Prophylaxis: Lovenox IV fluids: 2L -> 100 mL/hr Lines/Tubes: pIV Code Status: Full code DS: Summary Hospital Course Reason for hospitalization: Acute hypoxic respiratory failure Hospital Course: 75 years old male with history of COPD was admitted with complaint of having shortness of breath. Patient was found to be in acute hypoxic respiratory failure. Patient was given nebulizer treatment IV antibiotics and steroid. After few days of treatment past started feeling better. Patient did not have any complicated stay in the hospital. Today patient is feeling better and was discharged home stable condition follow-up scheduled. Status at Discharge Cognitive/behavioral status at discharge: Stable Time Spent with Patient Time attestation: Total time spent providing and/or coordinating discharge services: 30 minutes Exam Narrative: 2+ firm edema to BLE, chronic. Faint bib asilar crackles, A/Ox4. Const: General: comfortable and no acute distress Other: , male, elderly, nontoxic appearance HENMT: Face/Nose/Sinus: Normal nares present Mouth: Yes moist mucous membranes Eyes: General: appearance normal, both eyes and all related structures Sclera: sclerae normal Pupils: Equal, round and reactive pupils present EOM: EOMs intact bilaterally Resp: Effort & Inspection: normal respiratory effort Other: Faint bibasilar crackles. No wheezing. Nasal cannula place and tolerating well. Cardio: Rate: regular rate Rhythm: regular rhythm Other: S1-S2 present without murmur, rub, ectopy GI: Other: Abdomen soft, nondistended, nontender. Normoactive bowel sounds in all quadrants. Skin: General skin exam: normal color and no rashes or lesions noted Wounds: no wounds Neuro: Cranial nerves: Yes Equal, round and reactive pupils present Speech: normal speech Motor exam (neuro): 5/5 motor strength present throughout Sensory Exam: normal sensation Other: A&O x4 Extrem: Other: 2+ pitting edema to the bilateral lower extremities, firm. Chronic per patient. Psych: Mental Status: mental status grossly normal Affect: normal affect Other: Good insight and judgment, pleasant DS: Data Data Completed and Pending Labs on day of discharge: Labs from last 24 hours 05/08/25 05/07/25 05/07/25 04:32 18:28 16:14 WBC 10.0 RBC 3.93 L Hgb 12.9 L Hct 38.1 L MCV 96.9 MCH 32.8 MCHC 33.9 RDW 12.1 Plt Count 181 MPV 9.8 Immature Gran % (Auto) 0.5 Neut % (Auto) 88.7 H Lymph % (Auto) 9.4 L Whiteside % (Auto) 1.4 L Eos % (Auto) 0.0 Baso % (Auto) 0.0 L Lymph # (Auto) 0.94 Whiteside # (Auto) 0.1 Eos # (Auto) 0.0 Baso # (Auto) 0.0 Abs Immat Gran (auto) 0.05 H Absolute Neuts (auto) 8.8 H Absolute Nucleated RBC 0.000 Nucleated RBC % 0.0 Sodium 135 L Potassium 4.1 Chloride 102 Carbon Dioxide 26 Anion Gap 7 BUN 17 Creatinine 0.74 Estim Creat Clear Calc 99 Estimated GFR > 60 Glucose 192 H Lactic Acid 1.8 Calcium 8.9 Total Bilirubin AST ALT Alkaline Phosphatase Total Protein Albumin Urine Color Yellow Urine Appearance Clear Urine pH 6.5 Ur Specific [place] 1.014 Urine Protein Negative Urine Glucose (UA) Negative Urine Ketones Negative Ur Blood (Man) Negative Urine Nitrate Negative Urine Bilirubin Negative Urine Urobilinogen 0.2 Leukocyte Esterase Rfl Negative Influenza A (RT-PCR) Influenza B (RT-PCR) RSV (RT-PCR) SARS-CoV-2 RNA (RT-PCR) 05/07/25 05/07/25 13:48 12:48 WBC 12.7 H RBC 4.27 L Hgb 14.1 Hct 40.3 L MCV 94.4 MCH 33.0 MCHC 35.0 RDW 12.1 Plt Count 201 MPV 9.0 Immature Gran % (Auto) 0.4 Neut % (Auto) 84.2 H Lymph % (Auto) 8.4 L [place] % (Auto) 6.6 Eos % (Auto) 0.2 Baso % (Auto) 0.2 Lymph # (Auto) 1.06 [place] # (Auto) 0.8 H Eos # (Auto) 0.0 Baso # (Auto) 0.0 Abs Immat Gran (auto) 0.05 H Absolute Neuts (auto) 10.7 H Absolute Nucleated RBC 0.000 Nucleated RBC % 0.0 Sodium 131 L Potassium 4.4 Chloride 99 Carbon Dioxide 24 Anion Gap 8 BUN 20 Creatinine 0.84 Estim Creat Clear Calc 87 Estimated GFR > 60 Glucose 112 H Lactic Acid Calcium 9.3 Total Bilirubin 1.2 AST 37 ALT 31 Alkaline Phosphatase 74 Total Protein 7.5 Albumin 4.2 Urine Color Urine Appearance Urine pH Ur Specific [place] Urine Protein Urine Glucose (UA) Urine Ketones Ur Blood (Man) Urine Nitrate Urine Bilirubin Urine Urobilinogen Leukocyte Esterase Rfl Influenza A (RT-PCR) Negative Influenza B (RT-PCR) Negative RSV (RT-PCR) Negative SARS-CoV-2 RNA (RT-PCR) Negative Discharge Plan Discharge Attending physician on discharge: Doug Patiño Discharging Clinician: Doug Patiño Patient Disposition: Home Activity: as tolerated Diet: as tolerated Patient Instructions: Antibiotic Form Patient Language: Thai Stand Alone Forms: General Discharge Information Follow-up/Referrals: Teresa,MD Vernon [Primary Care Provider, Unknown] Discharge Medications: New prednisone 10 mg tablet 10 mg PO DAILY Qty: 7 0RF doxycycline monohydrate 100 mg capsule 100 mg PO BID Qty: 14 0RF Continued albuterol sulfate 90 mcg/actuation HFA aerosol inhaler 2 inh inhalation QID PRN (Reason: shortness of breath or wheezing) Qty: 8.5 0RF Rx Instructions: Take 4 puffs every hour for 3 rounds, then take 2 puffs every 2-4 hours as needed for wheezing or shortness of breath amitriptyline 25 mg tablet 50 mg PO HS atorvastatin 40 mg tablet 40 mg PO QAM carvedilol 6.25 mg tablet 6.25 mg PO BID losartan 50 mg tablet 50 mg PO QAM lorazepam 0.5 mg tablet 0.5 mg PO TID furosemide 20 mg tablet 20 mg PO QAM escitalopram oxalate 20 mg tablet 20 mg PO QAM Dulera 100-5 mcg/actuation HFA aerosol inhaler 2 puff inhalation BID aspirin [Adult Low Dose Aspirin] 81 mg tablet,delayed release (DR/EC) 81 mg PO DAILY Date of admission: 05/07/25 16:18 Primary Care Provider: TeresaVernon Admitting Provider: Brenden Cheung Attending physician on admission: Brenden Cheung Condition: Stable Quality VTE Prophylaxis VTE prophylaxis: pharmacologic ordered
--- NOTE | 2025-05-08 14:05 | PC.NURSE ---
Patient is refusing home O2 evaluation. He was educated about the risks of refusing this. The provider, Dr. Patiño, was notified, and he said the patient can be discharged and to follow up with his primary outpatient.
== END 2025-05-08 14:40 | disposition home or self-care (01) ==
LOC: ANHED 13:42 → ANH2MED 17:11
PROVIDERS: Emergency Medicine; Student in an Organized Health Care Education/Training Program; Admitting Provider Internal Medicine; Emergency Provider Emergency Medicine; PCP Hospitalist; Visit Provider Internal Medicine
DX: J96.01 Acute respiratory failure with hypoxia (principal); R41.0 Disorientation, unspecified; J44.9 Chronic obstructive pulmonary disease, unspecified; R65.10 Systemic inflammatory response syndrome (SIRS) of non-infectious origin without acute organ dysfunction; G47.33 Obstructive sleep apnea (adult) (pediatric); E78.5 Hyperlipidemia, unspecified; I10 Essential (primary) hypertension; F10.10 Alcohol abuse, uncomplicated; Z20.822 Contact with and (suspected) exposure to COVID-19; Z87.891 Personal history of nicotine dependence; Z99.89 Dependence on other enabling machines and devices
CPT/HCPCS: 36415; 71045; 80048; 80053; 81003; 83605; 85025; 87040; 87637; 93005; 94640; 96361; 96365; 96372; 96374; 96375; 96376; 99285; A9270; G0378; J0696; J1650; J2919; J7030; J7120